=== PATIENT | male | born 1960 | race American Indian/Alaskan Native ===

== ENCOUNTER 2017-02-12 10:39 | Emergency (ER) | payer SELFPAY ==
[2017-02-12 11:24] VITALS: BP 149/88
--- NOTE | 2017-02-12 12:33 | Emergency Department Report ---
HPI - General Chief Complaint: Upper Respiratory Infection Time Seen by Provider: 02/12/17 12:09 - HPI HPI: Patient is a 57-year-old male presents with his to ED complaining of cold- like symptoms times couple of months. She states he's been coughing with a runny nose. Patient states cough is productive with white thick mucus. Patient states he has not been to see her primary care because he's been working so much and has not had a day off. Patient also states that last week his was told that by her in doctors office that she had trich. Patient states he has not had any penile discharge or penile pain or significant blood in the urine. Patient does admit urinary urgency. Denies any recent sick contacts. Patient states he has not been outside the country recently. Patient denies fever/chills/nausea/vomiting/abdominal pain/chest pain/shortness of breath or any problems. ED Past Medical Hx - Past Medical History Additional medical history: chronic back pain - Surgical History Additional Surgical History: back surgery - Social History Smoking Status: Never Smoker Substance Use Type: Alcohol - Medications Home Medications: Home Medications Medication Instructions Recorded Confirmed Last Taken Type Azithromycin [Zithromax] 250 mg PO DAILY #6 tablet 02/12/17 Unknown Rx Benzonatate [Tessalon Perles] 100 mg PO Q8HR #21 capsule 02/12/17 Unknown Rx ED Review of Systems ROS: Stated complaint: COLD SX/POSS STD Other details as noted in HPI Constitutional: denies: chills, fever Eyes: denies: eye pain, eye discharge, vision change ENT: denies: ear pain, throat pain, dental pain, hearing loss, congestion Respiratory: denies: cough, shortness of breath, wheezing Cardiovascular: denies: chest pain, palpitations Endocrine: no symptoms reported Gastrointestinal: denies: abdominal pain, nausea, diarrhea Genitourinary: urgency. denies: dysuria, frequency, hematuria, discharge Musculoskeletal: denies: back pain, joint swelling, arthralgia Skin: denies: rash, lesions Neurological: denies: headache, weakness, numbness, paresthesias, confusion Psychiatric: denies: anxiety, depression Hematological/Lymphatic: denies: easy bleeding, easy bruising, swollen glands Physical Exam - Physical Exam Vital Signs: Vital Signs 02/12/17 11:21 Temperature 98.4 F Pulse Rate 60 Respiratory 17 Rate Blood Pressure 149/88 O2 Sat by Pulse 99 Oximetry Physical Exam: GENERAL: Alert and oriented x3, no apparent distress, Normal Gait, atraumatic. HEAD: Head is normocephalic and a-traumatic. EYES: Extra ocular muscles are intact. Pupils are equal, round, and reactive to light and accommodation. EARS: symetrical, atraumatic, non tender gross auditory nml bilaterally. NOSE: Nose symetrical, Nontender,Nares appeared normal. MOUTH:Mouth is well hydrated and without lesions. Tonsils nonerythematous or swollen, Uvula midline, Tongue not elevated. Mucous membranes are moist. Posterior pharynx clear, no exudate or lesions. Patent airways. NECK: Supple. Non edematous, No carotid bruits. No lymphadenopathy or thyromegaly. No C-spine tenderness LUNGS: Symetrical with respiration, No wheezing, no rales or crackles, CTAB. HEART: S1, S2 present, regular rate and rhythm without murmur, no rubs, no gallops. ABDOMEN: No organomegaly was noted,Positive bowel sounds, soft, and non- distended. . Nontender to palpation on all Quadrants, NO CVA tenderness. NEUROLOGIC: No focal Deficit, Cranial nerves II through XII are grossly intact. No loss of sensation, PSYCHIATRIC: Mood is congruent with affect, denies suicidal or homicidal ideations. SKIN: Warm and dry, No lesions, No ulceration or induration present. ED Course Vital Signs 02/12/17 11:21 Temperature 98.4 F Pulse Rate 60 Respiratory 17 Rate Blood Pressure 149/88 O2 Sat by Pulse 99 Oximetry ED Medical Decision Making - Medical Decision Making 57-year-old male presents with upper respiratory infection/STD exposure ED course: He received Flagyl 2 g. Urinalysis is ordered. Urinalysis shows mild pyuria Discussed findings with patient. Discussed the patient to take antibiotics as prescribed. Discussed the patient to follow up with primary care physician to get further STD testing Critical care attestation.: If time is entered above; I have spent that time in minutes in the direct care of this critically ill patient, excluding procedure time. ED Disposition Clinical Impression: STD exposure URI (upper respiratory infection) Qualifiers: URI type: unspecified URI Qualified Code(s): J06.9 - Acute upper respiratory infection, unspecified Disposition: DISCHARGED TO HOME OR SELFCARE Is pt being admited?: No Does the pt Need Aspirin: No Condition: Stable Instructions: Sexually Transmitted Diseases (ED), Safe Sex (ED), Trichomoniasis (ED), Upper Respiratory Infection (ED) Additional Instructions: Follow-up with your primary-care physician or any referred to. Her medication as prescribed. If symptoms worsen or new symptoms arise return to the nearest ED. Prescriptions: Azithromycin [Zithromax] 250 mg PO DAILY #6 tablet Benzonatate [Tessalon Perles] 100 mg PO Q8HR #21 capsule Referrals: PRIMARY CAREMD [Primary Care Provider] - 3-5 Days KOSTA PRICE MD [Referring] - 3-5 Days [facility] [Outside] - 3-5 Days [facility] [Outside] - 3-5 Days Forms: Accompanied Note, Work/School Release Form(ED) Time of Disposition: 13:25
[2017-02-12 13:06] LABS: Bilirubin,Urine NEG (Negative); Blood,Urine MOD (Negative); Ketones,Urine NEG (Negative); Leukocyte Esterase,Urine SM (Negative); Mucus,Urine FEW /HPF; Nitrite,Urine NEG (Negative); Protein,Urine <15 mg/dL mg/dL (Negative); Urobilinogen,Urine < 2.0 mg/dL (<2.0)
[2017-02-12] MEDS ORDERED: FLAGYL PO ONE (13:17)
== END 2017-02-12 13:54 | disposition home or self-care (01) ==
LOC: ED 10:39
DX: J06.9 Acute upper respiratory infection, unspecified (principal); Z20.2 Contact with and (suspected) exposure to infections with a predominantly sexual mode of transmission; G89.29 Other chronic pain
CPT/HCPCS: 81001; 82962; 99283

== ENCOUNTER 2018-04-17 12:11 | Emergency (ER) | payer OTHER ==
[2018-04-17 12:48] VITALS: BP 155/83
[2018-04-17] MEDS ORDERED: DECADRON IM ONE (15:10)
--- NOTE | 2018-04-17 15:13 | Emergency Department Report ---
ED Back Pain/Injury HPI - General Chief Complaint: Back Pain/Injury Stated Complaint: LOWE BACK PAIN/LEFT LEG Source: patient, family Limitations: No Limitations - History of Present Illness Initial Comments: Patient is a 58-year-old [place] male with a past history of sciatica who was sent in by his primary care physician because he stated that the Vicodin that she gave was not helping. Patient states that he has pain at the left buttock is worse when he sits straight up. Patient states his pain radiates down the left leg. Patient has had exacerbation of this problem in the past. Patient denies any fevers chills nausea vomiting diarrhea at this time. Patient states pain is nonerythematous . - Related Data Previous Rx's Medication Instructions Recorded Last Taken Type Azithromycin [Zithromax] 250 mg PO DAILY #6 tablet 02/12/17 Unknown Rx Benzonatate [Tessalon Perles] 100 mg PO Q8HR #21 capsule 02/12/17 Unknown Rx methOCARBAMOL [Robaxin TAB] 500 mg PO Q6H PRN #15 tablet 04/17/18 Unknown Rx predniSONE [Deltasone] 20 mg PO QDAY #5 tab 04/17/18 Unknown Rx traMADol [Ultram] 50 mg PO Q6HR PRN #10 tablet 04/17/18 Unknown Rx Allergies Allergy/AdvReac Type Severity Reaction Status Date / Time ibuprofen Allergy Rash Verified 01/01/15 09:38 ED Review of Systems ROS: Stated complaint: LOWE BACK PAIN/LEFT LEG Other details as noted in HPI Comment: All other systems reviewed and negative ED Past Medical Hx - Past Medical History Additional medical history: chronic back pain - Surgical History Past Surgical History?: Yes Additional Surgical History: back surgery - Social History Smoking Status: Current Every Day Smoker Substance Use Type: None - Medications Home Medications: Home Medications Medication Instructions Recorded Confirmed Last Taken Type Azithromycin [Zithromax] 250 mg PO DAILY #6 tablet 02/12/17 Unknown Rx Benzonatate [Tessalon Perles] 100 mg PO Q8HR #21 capsule 02/12/17 Unknown Rx methOCARBAMOL [Robaxin TAB] 500 mg PO Q6H PRN #15 tablet 04/17/18 Unknown Rx predniSONE [Deltasone] 20 mg PO QDAY #5 tab 04/17/18 Unknown Rx traMADol [Ultram] 50 mg PO Q6HR PRN #10 tablet 04/17/18 Unknown Rx ED Physical Exam - General Limitations: No Limitations General appearance: alert, in no apparent distress - Head Head exam: Present: atraumatic, normocephalic - Eye Eye exam: Present: normal appearance - ENT ENT exam: Present: mucous membranes moist - Neck Neck exam: Present: normal inspection - Respiratory Respiratory exam: Present: normal lung sounds bilaterally. Absent: respiratory distress - Cardiovascular Cardiovascular Exam: Present: regular rate, normal rhythm. Absent: systolic murmur, diastolic murmur, rubs, gallop - GI/Abdominal GI/Abdominal exam: Present: soft, normal bowel sounds - Rectal Rectal exam: Present: deferred - Extremities Exam Extremities exam: Present: normal inspection - Back Exam Back exam: Present: normal inspection, paraspinal tenderness (as well as pain in palpation to the Center buttock on the left) - Neurological Exam Neurological exam: Present: alert, oriented X3 - Psychiatric Psychiatric exam: Present: normal affect, normal mood - Skin Skin exam: Present: warm, dry, intact, normal color. Absent: rash ED Course Vital Signs 04/17/18 12:42 Temperature 97.9 F Pulse Rate 72 Respiratory 18 Rate Blood Pressure 155/83 O2 Sat by Pulse 99 Oximetry ED Medical Decision Making - Medical Decision Making Patient was given a Decadron shot here in the emergency department. Patient be discharged home with several Ultram and Robaxin. Critical care attestation.: If time is entered above; I have spent that time in minutes in the direct care of this critically ill patient, excluding procedure time. ED Disposition Clinical Impression: Sciatic leg pain Disposition: DC-01 TO HOME OR SELFCARE Is pt being admited?: No Does the pt Need Aspirin: No Condition: Stable Instructions: Lumbar Radiculopathy (ED) Prescriptions: methOCARBAMOL [Robaxin TAB] 500 mg PO Q6H PRN #15 tablet PRN Reason: Pain predniSONE [Deltasone] 20 mg PO QDAY #5 tab traMADol [Ultram] 50 mg PO Q6HR PRN #10 tablet PRN Reason: Pain Referrals: PRIMARY CARE,MD [Primary Care Provider] - 3-5 Days
== END 2018-04-17 15:20 | disposition home or self-care (01) ==
LOC: ED 12:11
DX: M54.32 Sciatica, left side (principal); M54.89 Other dorsalgia; G89.29 Other chronic pain; F17.200 Nicotine dependence, unspecified, uncomplicated; Z88.6 Allergy status to analgesic agent
CPT/HCPCS: 96372; 99282; J1100

== ENCOUNTER 2018-07-04 12:38 | Emergency (ER) | payer OTHER ==
[2018-07-04 12:49] VITALS: BP 136/81
--- NOTE | 2018-07-04 13:28 | Emergency Department Report ---
ED Male HPI - General Chief complaint: Abdominal Pain Stated complaint: KNOT ON STOMACH Time Seen by Provider: 07/04/18 13:05 Source: patient Mode of arrival: Ambulatory Limitations: No Limitations - History of Present Illness Initial comments: Is a 58-year-old -[place] male who is complaining of some right groin pain. Patient states for the past 2-3 weeks he says some increased pain and swelling in this area especially with exertion. 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 Patient denies any problems with his bowels nausea vomiting or diarrhea at this time. Complaint: groin pain - Related Data Previous Rx's Medication Instructions Recorded Last Taken Type Azithromycin [Zithromax] 250 mg PO DAILY #6 tablet 02/12/17 Unknown Rx Benzonatate [Tessalon Perles] 100 mg PO Q8HR #21 capsule 02/12/17 Unknown Rx methOCARBAMOL [Robaxin TAB] 500 mg PO Q6H PRN #15 tablet 04/17/18 Unknown Rx predniSONE [Deltasone] 20 mg PO QDAY #5 tab 04/17/18 Unknown Rx traMADol [Ultram] 50 mg PO Q6HR PRN #10 tablet 04/17/18 Unknown Rx Docusate Sodium [Colace] 100 mg PO BID #30 capsule 07/04/18 Unknown Rx traMADol [Ultram] 50 mg PO Q6HR PRN #12 tablet 07/04/18 Unknown Rx Allergies Allergy/AdvReac Type Severity Reaction Status Date / Time ibuprofen Allergy Rash Verified 01/01/15 09:38 ED Review of Systems ROS: Stated complaint: KNOT ON STOMACH Other details as noted in HPI Comment: All other systems reviewed and negative ED Past Medical Hx - Past Medical History Previous Medical History?: No Additional medical history: chronic back pain - Surgical History Additional Surgical History: back surgery - Social History Smoking Status: Unknown if ever smoked Substance Use Type: None - Medications Home Medications: Home Medications Medication Instructions Recorded Confirmed Last Taken Type Azithromycin [Zithromax] 250 mg PO DAILY #6 tablet 02/12/17 Unknown Rx Benzonatate [Tessalon Perles] 100 mg PO Q8HR #21 capsule 02/12/17 Unknown Rx methOCARBAMOL [Robaxin TAB] 500 mg PO Q6H PRN #15 tablet 04/17/18 Unknown Rx predniSONE [Deltasone] 20 mg PO QDAY #5 tab 04/17/18 Unknown Rx traMADol [Ultram] 50 mg PO Q6HR PRN #10 tablet 04/17/18 Unknown Rx Docusate Sodium [Colace] 100 mg PO BID #30 capsule 07/04/18 Unknown Rx traMADol [Ultram] 50 mg PO Q6HR PRN #12 tablet 07/04/18 Unknown Rx ED Physical Exam - General Limitations: No Limitations General appearance: alert, in no apparent distress - Head Head exam: Present: atraumatic, normocephalic - Eye Eye exam: Present: normal appearance - ENT ENT exam: Present: mucous membranes moist - Neck Neck exam: Present: normal inspection - Respiratory Respiratory exam: Present: normal lung sounds bilaterally. Absent: respiratory distress, wheezes, rales, rhonchi - Cardiovascular Cardiovascular Exam: Present: regular rate, normal rhythm. Absent: systolic murmur, diastolic murmur, rubs, gallop - GI/Abdominal GI/Abdominal exam: Present: soft, normal bowel sounds, hernia (right inguinal, reducable). Absent: distended, tenderness, guarding, rebound - Rectal Rectal exam: Present: deferred - Extremities Exam Extremities exam: Present: normal inspection - Back Exam Back exam: Present: normal inspection - Neurological Exam Neurological exam: Present: alert, oriented X3 - Psychiatric Psychiatric exam: Present: normal affect, normal mood - Skin Skin exam: Present: warm, dry, intact, normal color. Absent: rash ED Course Vital Signs 07/04/18 12:47 Temperature 97.9 F Pulse Rate 62 Respiratory 18 Rate Blood Pressure 136/81 O2 Sat by Pulse 100 Oximetry ED Medical Decision Making - Medical Decision Making The patient has a small right ankle when all hernia and will be referred to general surgery for further management. Critical care attestation.: If time is entered above; I have spent that time in minutes in the direct care of this critically ill patient, excluding procedure time. ED Disposition Clinical Impression: Inguinal hernia Qualifiers: Obstruction and gangrene presence: without obstruction or gangrene Laterality: unilateral Recurrence: non-recurrent Qualified Code(s): K40.90 - Unilateral inguinal hernia, without obstruction or gangrene, not specified as recurrent Disposition: DC-01 TO HOME OR SELFCARE Is pt being admited?: No Does the pt Need Aspirin: No Condition: Stable Instructions: Inguinal Hernia (ED) Additional Instructions: Try using a jock strap to try to put pressure on the hernia to keep it from coming out Referrals: LUÍS MAHAJAN MD [Staff Physician] - 3-5 Days Forms: Work/School Release Form(ED) Time of Disposition: 13:28
== END 2018-07-04 13:38 | disposition home or self-care (01) ==
LOC: ED 12:38
DX: K40.90 Unilateral inguinal hernia, without obstruction or gangrene, not specified as recurrent (principal); Z79.899 Other long term (current) drug therapy; Z88.6 Allergy status to analgesic agent
CPT/HCPCS: 99282

== ENCOUNTER 2018-12-27 05:06 | Emergency (ER) | payer OTHER ==
[2018-12-27 05:21] VITALS: BP 143/97
[2018-12-27] MEDS ORDERED: ZOFRAN ODT PO ONE (08:54)
[2018-12-27] MEDS ORDERED: NORCO 10/325 PO ONE (08:54)
--- NOTE | 2018-12-27 08:56 | Emergency Department Report ---
ED Back Pain/Injury HPI - General Chief Complaint: Pain General Stated Complaint: PAIN IN RIGHT ARM AND RIGHT LEG Source: patient Limitations: No Limitations - History of Present Illness Initial Comments: 58M PMh smoker, chronic lower back pain, history of lumbar radiculopathy, sciatica presents with complaint of acute on chronic lower back pain radiating to right buttock down right leg. Patient is ambulatory and denies fevers chills nausea vomiting recent direct trauma to back or right hip. Patient is ambulatory without assistance. 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 States that he has been experiencing sciatic episode for at least 4-5 days because he is sleeping on a very hard steel caught at his [employer] house. Patient denies any current smoking drinking or alcohol use. Denies loss of bladder or bowel control. MD Complaint: back pain Onset/Timin -: days(s) Place: home Radiation: buttocks, right leg Severity: moderate Severity scale (0 -10): 8 Quality: sharp, aching Consistency: constant Improves With: none Worsens With: none - Related Data Previous Rx's Medication Instructions Recorded Last Taken Type Azithromycin [Zithromax] 250 mg PO DAILY #6 tablet 02/12/17 Unknown Rx Benzonatate [Tessalon Perles] 100 mg PO Q8HR #21 capsule 02/12/17 Unknown Rx methOCARBAMOL [Robaxin TAB] 500 mg PO Q6H PRN #15 tablet 04/17/18 Unknown Rx predniSONE [Deltasone] 20 mg PO QDAY #5 tab 04/17/18 Unknown Rx traMADol [Ultram] 50 mg PO Q6HR PRN #10 tablet 04/17/18 Unknown Rx Docusate Sodium [Colace] 100 mg PO BID #30 capsule 07/04/18 Unknown Rx traMADol [Ultram] 50 mg PO Q6HR PRN #12 tablet 07/04/18 Unknown Rx HYDROcodone/APAP 5-325 [[place] 1 each PO Q6HR PRN #12 tablet 12/27/18 Unknown Rx 5/325] methylPREDNISolone [Medrol] 4 mg PO QDAY #1 tab.ds.pk 12/27/18 Unknown Rx Allergies Allergy/AdvReac Type Severity Reaction Status Date / Time ibuprofen Allergy Rash Verified 01/01/15 09:38 ED Review of Systems ROS: Stated complaint: PAIN IN RIGHT ARM AND RIGHT LEG Other details as noted in HPI Constitutional: denies: chills, fever Eyes: denies: eye pain, eye discharge, vision change ENT: denies: ear pain, throat pain Respiratory: denies: cough, shortness of breath, wheezing Cardiovascular: denies: chest pain, palpitations Endocrine: no symptoms reported Gastrointestinal: denies: abdominal pain, nausea, diarrhea Genitourinary: denies: urgency, dysuria Musculoskeletal: back pain. denies: joint swelling, arthralgia Skin: denies: rash, lesions Neurological: denies: headache, weakness, paresthesias Psychiatric: denies: anxiety, depression Hematological/Lymphatic: denies: easy bleeding, easy bruising ED Past Medical Hx - Past Medical History Previous Medical History?: Yes Additional medical history: chronic back pain - Surgical History Past Surgical History?: Yes Additional Surgical History: back surgery - Social History Smoking Status: Current Every Day Smoker - Medications Home Medications: Home Medications Medication Instructions Recorded Confirmed Last Taken Type Azithromycin [Zithromax] 250 mg PO DAILY #6 tablet 02/12/17 Unknown Rx Benzonatate [Tessalon Perles] 100 mg PO Q8HR #21 capsule 02/12/17 Unknown Rx methOCARBAMOL [Robaxin TAB] 500 mg PO Q6H PRN #15 tablet 04/17/18 Unknown Rx predniSONE [Deltasone] 20 mg PO QDAY #5 tab 04/17/18 Unknown Rx traMADol [Ultram] 50 mg PO Q6HR PRN #10 tablet 04/17/18 Unknown Rx Docusate Sodium [Colace] 100 mg PO BID #30 capsule 07/04/18 Unknown Rx traMADol [Ultram] 50 mg PO Q6HR PRN #12 tablet 07/04/18 Unknown Rx HYDROcodone/APAP 5-325 [[place] 1 each PO Q6HR PRN #12 tablet 12/27/18 Unknown Rx 5/325] methylPREDNISolone [Medrol] 4 mg PO QDAY #1 tab.ds.pk 12/27/18 Unknown Rx ED Physical Exam - General Limitations: No Limitations General appearance: alert, in no apparent distress - Head Head exam: Present: atraumatic, normocephalic - Eye Eye exam: Present: normal appearance, PERRL, EOMI - ENT ENT exam: Present: mucous membranes moist - Neck Neck exam: Present: normal inspection - Respiratory Respiratory exam: Present: normal lung sounds bilaterally. Absent: respiratory distress - Cardiovascular Cardiovascular Exam: Present: regular rate, normal rhythm. Absent: systolic murmur, diastolic murmur, rubs, gallop - GI/Abdominal GI/Abdominal exam: Present: soft, normal bowel sounds - Rectal Rectal exam: Present: deferred - Extremities Exam Extremities exam: Present: normal inspection - Back Exam Back exam: Present: normal inspection, full ROM - Neurological Exam Neurological exam: Present: alert, oriented X3, CN II-XII intact, normal gait - Psychiatric Psychiatric exam: Present: normal affect, normal mood - Skin Skin exam: Present: warm, dry, intact, normal color. Absent: rash ED Course Vital Signs 12/27/18 12/27/18 05:09 08:20 Temperature 98.5 F Pulse Rate 80 Respiratory 18 16 Rate Blood Pressure 143/97 O2 Sat by Pulse 98 Oximetry ED Medical Decision Making - Medical Decision Making A/P acute on chronic lower back pain 1- no clinical signs of cauda equina, no overt neuro deficits on exam is ambulatory 2-patient needs follow-up with primary care and outpatient orthopedics 3-short course of Medrol Dosepak and analgesics Critical care attestation.: If time is entered above; I have spent that time in minutes in the direct care of this critically ill patient, excluding procedure time. ED Disposition Clinical Impression: Chronic lower back pain Qualifiers: Back pain laterality: right Sciatica presence: with sciatica Sciatica laterality: sciatica of right side Qualified Code(s): M54.41 - Lumbago with sciatica, right side Sciatica Qualifiers: Laterality: right Qualified Code(s): M54.31 - Sciatica, right side Disposition: - TO HOME OR SELFCARE Is pt being admited?: No Does the pt Need Aspirin: No Condition: Stable Instructions: Lumbar Radiculopathy (ED) Prescriptions: methylPREDNISolone [Medrol] 4 mg PO QDAY #1 tab.ds.pk HYDROcodone/APAP 5-325 [[place] 5/325] 1 each PO Q6HR PRN #12 tablet PRN Reason: Pain Referrals: KATYA SIMONS MD [Primary Care Provider] - 3-5 Days Forms: Work/School Release Form(ED) Time of Disposition: 08:55
== END 2018-12-27 09:06 | disposition home or self-care (01) ==
LOC: ED 05:06
DX: G89.29 Other chronic pain (principal); M54.41 Lumbago with sciatica, right side; F17.200 Nicotine dependence, unspecified, uncomplicated; Z88.6 Allergy status to analgesic agent
CPT/HCPCS: Q0162

== ENCOUNTER 2020-02-23 18:21 | Emergency (ER) | payer MEDICAID ==
[2020-02-23 18:28] VITALS: BP 141/86
== END 2020-02-23 18:24 | disposition left against medical advice (07) ==
LOC: ED 18:21
DX: T22.00XA Burn of unspecified degree of shoulder and upper limb, except wrist and hand, unspecified site, initial encounter (principal); Z53.21 Procedure and treatment not carried out due to patient leaving prior to being seen by health care provider; X08.8XXA Exposure to other specified smoke, fire and flames, initial encounter; Y93.89 Activity, other specified; Y92.89 Other specified places as the place of occurrence of the external cause; Y99.8 Other external cause status

== ENCOUNTER 2021-11-16 20:33 | Emergency (ER) | payer MEDICARE | END 2021-11-16 21:48 | disposition left against medical advice (07) | LOC: ED 20:33 | DX: M79.602 Pain in left arm (principal); M25.552 Pain in left hip; Z53.21 Procedure and treatment not carried out due to patient leaving prior to being seen by health care provider ==